=== PATIENT | female | born 1945 | race Caucasian/White ===

== ENCOUNTER 2018-01-01 09:56 | Inpatient (IN) ==
[2018-01-01] MEDS ORDERED: ONDANSETRON 4 MG/2 ML VIAL IV STA (10:23)
[2018-01-01] MEDS ORDERED: SODIUM CHLORIDE 0.9% 1,000 ML IV STA (10:23)
[2018-01-01 10:36] LABS: Basophils # 0.1 10*3/uL (0.0-0.2); Basophils % 0.5 % (0.0-0.8); Eosinophils % 0.4 % (0.00-10.9); Hematocrit 42.4 VOL% (35.7-47.0); Hemoglobin 14.5 GM/DL (12.0-16.0); Immature Granulocytes % 0.5 %; Immature Granulocytes Absolute 0.05 #; Lymphocytes # 2.1 10*3/uL (1.4-4.0); Lymphocytes % 21.5 % (21.3-54.2); Mean Corpuscular HGB Conc 34.2 GM/DL (32-36); Mean Corpuscular Hemoglobin 31 PG (27-34); Mean Corpuscular Volume 89.8 FL (87-102); Mean Platelet Volume 9.6 FL (9.6-12.0); Monocytes # 1.1 10*3/uL (0.11-0.8); Monocytes % 10.9 % (1.7-12.7); Neutrophils # 6.5 10*3/uL (1.4-7.4); Neutrophils % 66.2 % (38.7-73.9); Platelet Count 197 T/CUMM (130-400); Red Blood Count 4.72 MC/CUMM (3.8-5.5); Red Cell Distribution Width 13.6 % (9.3-17.3); White Blood Count 9.8 T/CUMM (4-12)
[2018-01-01 10:56] LABS: Albumin 3.9 G/DL (3.4-5.0); Calcium 9.3 MG/DL (8.5-10.1); Osmolality,Calculated 271.8 MOS/KG (273-304); Potassium 4.3 MMOL/L (3.5-5.1); Total Protein 7.4 G/DL (6.4-8.3)
[2018-01-01 10:57] LABS: Lactic Acid 1.4 MMOL/L (0.4-2.0)
[2018-01-01 12:34] LABS: Apearance,Urine CLOUDY (Clear); Bacteria,Urine Few /HPF (Few); Bilirubin,Urine Negative (Negative); Blood, Urine Negative (Negative); Glucose,Urine (UA) Negative (Negative); Ketones,Urine 5 mg/dL (Negative); Mucus,Urine Occasional /LPF (Occasional); Nitrite,Urine Negative (Negative); Protein,Urine 100 MG/DL; RBC,Urine 14 /HPF (0-4); Squamous Epithelial Cell,Urine Occasional /HPF (0-10); Urine Color Yellow (Yellow); Urine Specific Gravity 1.011 (1.001-1.035); Urine Urobilinogen < 2.0 EU/DL (0.2-1.0); WBC,Urine 7 /HPF (0-6)
[2018-01-01] MEDS ORDERED: ONDANSETRON 4 MG/2 ML VIAL IV PRN (15:08)
[2018-01-01] MEDS ORDERED: ACETAMINOPHEN 325 MG TABLET PO PRN (15:11)
[2018-01-01] MEDS ORDERED: KETOROLAC 30 MG/1 ML VIAL ONE (15:12)
[2018-01-01] MEDS ORDERED: KETOROLAC 30 MG/1 ML VIAL IV STA (15:20)
[2018-01-01] MEDS ORDERED: SODIUM CHLORIDE 0.9% 1,000 ML IV SCH (15:30)
[2018-01-01] MEDS: SODIUM CHLORIDE 0.9% 1,000 ML IV SCH (16:25)
[2018-01-01] MEDS: MORPHINE 4 MG/1 ML VIAL IV PRN (16:55)
[2018-01-01] MEDS: ATORVASTATIN 20 MG TABLET PO SCH (20:49)
[2018-01-01] MEDS: rOPINIRole 0.25 MG TABLET PO SCH (20:49)
[2018-01-01] MEDS: CLORAZEPATE 3.75 MG TABLET PO SCH (20:50)
[2018-01-01] MEDS: LATANOPROST 0.005% OPH SOLN 2.5 ML BOTTLE BOTH EYES SCH (20:50)
[2018-01-01] MEDS: DOCUSATE SODIUM 100 MG CAPSULE PO SCH (20:51)
[2018-01-01] MEDS: TEMAZEPAM 15 MG CAPSULE PO SCH (20:51)
[2018-01-01] MEDS: DIVALPROEX ER 250 MG TABLET PO SCH (20:51)
[2018-01-01] MEDS: ANASTROZOLE 1 MG TABLET PO SCH (20:51)
[2018-01-01] MEDS ORDERED: DOCUSATE SODIUM 100 MG CAPSULE PO SCH (21:00)
[2018-01-01] MEDS ORDERED: traZODone 50 MG TABLET PO SCH (21:00)
[2018-01-02] MEDS: SODIUM CHLORIDE 0.9% 1,000 ML IV SCH ×3 (00:35→15:41)
[2018-01-02] MEDS: MORPHINE 4 MG/1 ML VIAL IV PRN (05:41)
[2018-01-02] MEDS ORDERED: PROMETHAZINE 25 MG/1 ML VIAL IM PRN (07:31)
[2018-01-02] MEDS: ONDANSETRON 4 MG/2 ML VIAL IV PRN ×2 (07:49→18:16)
[2018-01-02] MEDS ORDERED: PANTOPRAZOLE 40 MG TABLET PO SCH ×2 (09:00)
[2018-01-02] MEDS: TIMOLOL 0.5% OPH SOLN 5 ML BOTTLE RIGHT EYE SCH (09:47)
[2018-01-02] MEDS: LATANOPROST 0.005% OPH SOLN 2.5 ML BOTTLE BOTH EYES SCH ×2 (09:47→21:18)
[2018-01-02] MEDS: amLODIPine 5 MG TABLET PO SCH (09:49)
[2018-01-02] MEDS: DOCUSATE SODIUM 100 MG CAPSULE PO SCH ×2 (09:49→21:20)
[2018-01-02] MEDS: PANTOPRAZOLE 40 MG TABLET PO SCH (09:49)
[2018-01-02] MEDS: ANASTROZOLE 1 MG TABLET PO SCH (09:49)
[2018-01-02] MEDS: CHLORTHALIDONE 25 MG TABLET PO SCH (09:49)
[2018-01-02] MEDS: ASPIRIN EC 81 MG TABLET PO SCH (09:49)
[2018-01-02] MEDS: LISINOPRIL 20 MG TABLET PO SCH (09:49)
[2018-01-02] MEDS: cefTRIAXone 1,000 MG in SYRINGE 1 EACH IV SCH (15:37)
[2018-01-02] MEDS: tiZANidine 4 MG TABLET PO PRN (15:40)
[2018-01-02] MEDS: ACETAMINOPHEN 325 MG TABLET PO PRN (15:40)
[2018-01-02] MEDS: DIVALPROEX ER 250 MG TABLET PO SCH (21:15)
[2018-01-02] MEDS: TEMAZEPAM 15 MG CAPSULE PO SCH (21:16)
[2018-01-02] MEDS: CLORAZEPATE 3.75 MG TABLET PO SCH (21:16)
[2018-01-02] MEDS: ATORVASTATIN 20 MG TABLET PO SCH (21:16)
[2018-01-02] MEDS: rOPINIRole 0.25 MG TABLET PO SCH (21:16)
[2018-01-03] MEDS: ONDANSETRON 4 MG/2 ML VIAL IV PRN ×2 (00:05→13:47)
[2018-01-03] MEDS: SODIUM CHLORIDE 0.9% 1,000 ML IV SCH ×3 (00:11→16:49)
[2018-01-03] MEDS: ACETAMINOPHEN 325 MG TABLET PO PRN (00:14)
[2018-01-03] MEDS: tiZANidine 4 MG TABLET PO PRN (04:50)
[2018-01-03] MEDS: LATANOPROST 0.005% OPH SOLN 2.5 ML BOTTLE BOTH EYES SCH ×2 (09:21→20:29)
[2018-01-03] MEDS: TIMOLOL 0.5% OPH SOLN 5 ML BOTTLE RIGHT EYE SCH (09:22)
[2018-01-03] MEDS: ANASTROZOLE 1 MG TABLET PO SCH (09:22)
[2018-01-03] MEDS: amLODIPine 5 MG TABLET PO SCH (09:22)
[2018-01-03] MEDS: LISINOPRIL 20 MG TABLET PO SCH (09:22)
[2018-01-03] MEDS: PANTOPRAZOLE 40 MG TABLET PO SCH (09:22)
[2018-01-03] MEDS: ASPIRIN EC 81 MG TABLET PO SCH (09:22)
[2018-01-03] MEDS: CHLORTHALIDONE 25 MG TABLET PO SCH (09:22)
[2018-01-03] MEDS: DOCUSATE SODIUM 100 MG CAPSULE PO SCH ×2 (09:23→20:29)
[2018-01-03] MEDS ORDERED: BISACODYL 5 MG TABLET PO ONE (15:02)
[2018-01-03] MEDS: cefTRIAXone 1,000 MG in SYRINGE 1 EACH IV SCH (16:20)
[2018-01-03] MEDS ORDERED: POLYETHYLENE GLYCOL 3350/ELECTROLYTES 4,000 ML BOTTLE PO ONE (18:00)
[2018-01-03] MEDS: CLORAZEPATE 3.75 MG TABLET PO SCH (20:29)
[2018-01-03] MEDS: ATORVASTATIN 20 MG TABLET PO SCH (20:29)
[2018-01-03] MEDS: DIVALPROEX ER 250 MG TABLET PO SCH (20:29)
[2018-01-03] MEDS: rOPINIRole 0.25 MG TABLET PO SCH (20:29)
[2018-01-03] MEDS: TEMAZEPAM 15 MG CAPSULE PO SCH (20:29)
[2018-01-04] MEDS: SODIUM CHLORIDE 0.9% 1,000 ML IV SCH ×4 (00:36→21:01)
[2018-01-04 05:22] LABS: Basophils # 0.1 10*3/uL (0.0-0.2); Basophils % 0.6 % (0.0-0.8); Eosinophils # 0.1 10*3/uL (0.0-0.87); Eosinophils % 1.3 % (0.00-10.9); Hematocrit 40.7 VOL% (35.7-47.0); Hemoglobin 13.7 GM/DL (12.0-16.0); Immature Granulocytes % 0.1 %; Immature Granulocytes Absolute 0.01 #; Lymphocytes # 2.6 10*3/uL (1.4-4.0); Lymphocytes % 33.1 % (21.3-54.2); Mean Corpuscular HGB Conc 33.7 GM/DL (32-36); Mean Corpuscular Hemoglobin 30 PG (27-34); Mean Corpuscular Volume 90.2 FL (87-102); Mean Platelet Volume 9.8 FL (9.6-12.0); Monocytes # 0.9 10*3/uL (0.11-0.8); Monocytes % 12.2 % (1.7-12.7); Neutrophils # 4.1 10*3/uL (1.4-7.4); Neutrophils % 52.7 % (38.7-73.9); Platelet Count 180 T/CUMM (130-400); Red Blood Count 4.51 MC/CUMM (3.8-5.5); Red Cell Distribution Width 13.3 % (9.3-17.3); White Blood Count 7.7 T/CUMM (4-12)
[2018-01-04 05:41] LABS: Osmolality,Calculated 273.5 MOS/KG (273-304); Potassium 3.4 MMOL/L (3.5-5.1)
[2018-01-04] MEDS: LATANOPROST 0.005% OPH SOLN 2.5 ML BOTTLE BOTH EYES SCH ×2 (08:49→20:58)
[2018-01-04] MEDS: TIMOLOL 0.5% OPH SOLN 5 ML BOTTLE RIGHT EYE SCH (08:49)
[2018-01-04] MEDS: cefTRIAXone 1,000 MG in SYRINGE 1 EACH IV SCH (08:50)
[2018-01-04] MEDS ORDERED: fentaNYL 100 MCG/2 ML VIAL ONE (09:28)
[2018-01-04] MEDS ORDERED: MIDAZOLAM 2 MG/2 ML VIAL ONE (09:28)
[2018-01-04] MEDS: ANASTROZOLE 1 MG TABLET PO SCH (11:13)
[2018-01-04] MEDS: LISINOPRIL 20 MG TABLET PO SCH (11:13)
[2018-01-04] MEDS: amLODIPine 5 MG TABLET PO SCH (11:14)
[2018-01-04] MEDS: DOCUSATE SODIUM 100 MG CAPSULE PO SCH ×2 (11:14→20:55)
[2018-01-04] MEDS: CHLORTHALIDONE 25 MG TABLET PO SCH (11:14)
[2018-01-04] MEDS: PANTOPRAZOLE 40 MG TABLET PO SCH (11:14)
[2018-01-04] MEDS: ASPIRIN EC 81 MG TABLET PO SCH (11:14)
[2018-01-04] MEDS: ONDANSETRON 4 MG/2 ML VIAL IV PRN ×2 (14:14→20:53)
[2018-01-04] MEDS: DIVALPROEX ER 250 MG TABLET PO SCH (20:55)
[2018-01-04] MEDS: ATORVASTATIN 20 MG TABLET PO SCH (20:55)
[2018-01-04] MEDS: CLORAZEPATE 3.75 MG TABLET PO SCH (20:55)
[2018-01-04] MEDS: rOPINIRole 0.25 MG TABLET PO SCH (20:55)
[2018-01-04] MEDS: tiZANidine 4 MG TABLET PO PRN (20:56)
[2018-01-04] MEDS: TEMAZEPAM 15 MG CAPSULE PO SCH (20:56)
[2018-01-05] MEDS: SODIUM CHLORIDE 0.9% 1,000 ML IV SCH ×3 (04:32→22:23)
[2018-01-05] MEDS: LATANOPROST 0.005% OPH SOLN 2.5 ML BOTTLE BOTH EYES SCH ×2 (08:23→20:56)
[2018-01-05] MEDS: TIMOLOL 0.5% OPH SOLN 5 ML BOTTLE RIGHT EYE SCH (08:34)
[2018-01-05] MEDS: cefTRIAXone 1,000 MG in SYRINGE 1 EACH IV SCH (08:34)
[2018-01-05] MEDS: LACTATED RINGERS 1,000 ML IV SCH (08:34)
[2018-01-05] MEDS ORDERED: LIDOCAINE 100 MG/5 ML SYRINGE ONE ×2 (08:50→10:00)
[2018-01-05] MEDS ORDERED: PROPOFOL 200 MG/20 ML VIAL IV ONE ×2 (08:50→10:00)
[2018-01-05] MEDS: ACETAMINOPHEN 325 MG TABLET PO PRN ×2 (10:00→15:58)
[2018-01-05] MEDS: DOCUSATE SODIUM 100 MG CAPSULE PO SCH ×2 (10:01→20:54)
[2018-01-05] MEDS: LISINOPRIL 20 MG TABLET PO SCH (10:01)
[2018-01-05] MEDS: ASPIRIN EC 81 MG TABLET PO SCH (10:01)
[2018-01-05] MEDS: ANASTROZOLE 1 MG TABLET PO SCH (10:02)
[2018-01-05] MEDS: CHLORTHALIDONE 25 MG TABLET PO SCH (10:02)
[2018-01-05] MEDS: PANTOPRAZOLE 40 MG TABLET PO SCH (10:02)
[2018-01-05] MEDS: amLODIPine 5 MG TABLET PO SCH (10:05)
[2018-01-05 10:19] LABS: Apearance,Urine CLEAR (Clear); Bilirubin,Urine Negative (Negative); Blood, Urine Negative (Negative); Glucose,Urine (UA) Negative (Negative); Ketones,Urine Negative (Negative); Nitrite,Urine Negative (Negative); Protein,Urine Negative; RBC,Urine <1 /HPF (0-4); Squamous Epithelial Cell,Urine Occasional /HPF (0-10); Urine Color Straw (Yellow); Urine Specific Gravity 1.006 (1.001-1.035); Urine Urobilinogen < 2.0 EU/DL (0.2-1.0); WBC,Urine <1 /HPF (0-6)
[2018-01-05] MEDS: CLORAZEPATE 3.75 MG TABLET PO SCH (20:51)
[2018-01-05] MEDS: HYOSCYAMINE 0.125 MG TABLET PO PRN (20:51)
[2018-01-05] MEDS: rOPINIRole 0.25 MG TABLET PO SCH (20:51)
[2018-01-05] MEDS: ATORVASTATIN 20 MG TABLET PO SCH (20:52)
[2018-01-05] MEDS: DIVALPROEX ER 250 MG TABLET PO SCH (20:52)
[2018-01-05] MEDS: TEMAZEPAM 15 MG CAPSULE PO SCH (20:52)
[2018-01-05] MEDS: tiZANidine 4 MG TABLET PO PRN (20:52)
[2018-01-05] MEDS: ONDANSETRON 4 MG/2 ML VIAL IV PRN (20:54)
[2018-01-06] MEDS: ACETAMINOPHEN 325 MG TABLET PO PRN (03:20)
[2018-01-06] MEDS: HYOSCYAMINE 0.125 MG TABLET PO PRN ×3 (05:33→15:50)
[2018-01-06] MEDS: LACTATED RINGERS 1,000 ML IV SCH (06:09)
[2018-01-06] MEDS: SODIUM CHLORIDE 0.9% 1,000 ML IV SCH ×2 (06:28→14:17)
[2018-01-06] MEDS: ONDANSETRON 4 MG/2 ML VIAL IV PRN (08:00)
[2018-01-06] MEDS: PANTOPRAZOLE 40 MG TABLET PO SCH (09:46)
[2018-01-06] MEDS: CHLORTHALIDONE 25 MG TABLET PO SCH (09:46)
[2018-01-06] MEDS: DOCUSATE SODIUM 100 MG CAPSULE PO SCH (09:46)
[2018-01-06] MEDS: ASPIRIN EC 81 MG TABLET PO SCH (09:47)
[2018-01-06] MEDS: LISINOPRIL 20 MG TABLET PO SCH (09:47)
[2018-01-06] MEDS: amLODIPine 5 MG TABLET PO SCH (09:47)
[2018-01-06] MEDS: ANASTROZOLE 1 MG TABLET PO SCH (09:47)
[2018-01-06] MEDS: TIMOLOL 0.5% OPH SOLN 5 ML BOTTLE RIGHT EYE SCH (09:48)
[2018-01-06] MEDS: cefTRIAXone 1,000 MG in SYRINGE 1 EACH IV SCH (09:49)
[2018-01-06] MEDS: LATANOPROST 0.005% OPH SOLN 2.5 ML BOTTLE BOTH EYES SCH (10:20)
[2018-01-06 15:46] VITALS: BP 150/74
== END 2018-01-06 17:52 | disposition swing bed (61) | DRG 392 ==
LOC: N.ED 09:56 → N.EDINP 15:11 → N.2E 15:38
PROVIDERS: ADMIT Family Medicine; ATTEND Family Medicine